=== PATIENT | male | born 1975 | race Caucasian/White ===

== ENCOUNTER 2020-07-16 14:22 | Inpatient (IN) | payer BC, OTHER ==
[~2020-07-16] VITALS: Ht 177.8 cm; Wt 106.6 kg
[2020-07-16 14:28] VITALS: BP 152/88
[2020-07-16 15:15] LABS: ABSOLUTE NEUTROPHILS 9.2 thou/uL (1.4-8.2); BASOPHILS 0.4 % (0.0-2.0); EOSINOPHILS 0.4 % (0.0-3.0); HEMATOCRIT 38.8 % (42.0-52.0); MCH 31.1 pg (26.0-34.0); MCHC 33.6 g/dL (28.0-37.0); MCV 92.5 fL (80.0-100.0); MONOCYTES 5.9 % (1.0-8.0); PLATELET COUNT 307 thou/uL (150-400); POLYS 75.3 % (36.0-66.0); RDW 13.1 % (10.5-14.5); WBC 12.2 thou/uL (4.0-11.0)
[2020-07-16] MEDS ORDERED: BACTRIM DS TAB1 EACH PO (15:17)
[2020-07-16 15:22] LABS: ANION GAP 10 mmol/L (7-16); BUN 12 mg/dL (7-18); CALCIUM 9.1 mg/dL (8.5-10.1); CHLORIDE 99 mmol/L (98-107); CO2 26 mmol/L (21-32); CREATININE 1.1 mg/dL (0.7-1.3); GLUCOSE 163 mg/dL (74-106); POTASSIUM 3.8 mmol/L (3.5-5.1); SODIUM 135 mmol/L (136-145)
[2020-07-16 15:28] LABS: ALBUMIN 3.2 g/dL (3.4-5.0); DIRECT BILIRUBIN < 0.1 mg/dL (<0.1-0.2); LIPASE 81 U/L (73-393); SGOT 18 U/L (15-37); SGPT 40 U/L (30-65); TOTAL BILIRUBIN 0.4 mg/dL (0.2-1.0); TOTAL PROTEIN 8.1 g/dL (6.4-8.2)
[2020-07-16 16:50] VITALS: BP 148/96
--- NOTE | 2020-07-16 17:10 | NUR ---
Pharmacy contacted by medicaid billing clerk. They report they already sent vanco.
[2020-07-16 17:16] VITALS: BP 126/85
--- NOTE | 2020-07-16 17:18 | NUR ---
Pharmacy calls back and report that they will send the vanco shortly.
--- NOTE | 2020-07-16 18:11 | NUR ---
[facility] NURSE CALLED BY THIS RN TO SEE IF VANCO IS THERE. LILY HUTCHINSON REPORTS IT IS NOT. VANCO NOT FOUND IN THE ER AT THIS TIME. EVANGELINA NOTIFIED. WILL CONTACT PHARMACY AGAIN. PT TRANSPORTED TO [facility].
--- NOTE | 2020-07-16 18:23 | NUR ---
Pt taken to [facility]. Elza reprots that she will call [facility] about Za
--- NOTE | 2020-07-16 18:28 | NUR ---
PT ARRIVED ON THE UNIT AT THIS TIME. TRANSFERRED TO THE BED FROM WHEELCHAIR FAIRLY STEADY BUT IS C/O PAIN AT THIS TIME STATING HIS LEG FEELS LIKE IT IS "THROBBING AND GETTING MORE SWOLLEN NOW". ELEVATED RIGHT LEG ON PILLOW TO RELIEVE SOME OF THE PPRESSURE. WILL CALL MD FOR PAIN MEDICATION ORDERS WE HAVE NONE ORDERED THUS FAR. NEEDS TO START VANCOMYCIN ONCE IT ARRIVES FROMPHARMACY AND CALLED DOWN TO PHARMACY TO SEND UP. PT. AOX4, DENIES ANY CP, DENIES AND SOB OR TROUBLE BREATHING. PT REPORTS HE WEAR BOOTS ALL DAY POURING CONCRETE FOR 12-16 HOURS PER DAY AND HIS FEET JUST ALL DAY LONG AND THAT IS HOW HE THINKS THIS ALL STARTED.
[2020-07-16 19:33] VITALS: BP 132/86
--- NOTE | 2020-07-16 21:46 | NUR ---
PT ADMITTED TO THE UNIT AT 1820. ASSUMED CARE OF PT AT APPROXIMATELY 1900. PT IS A/O X4 AND IS UP AD SHARRON. PT DENIES PAIN AT THIS TIME DAY NURSE HAD JUST GIVEN PRN PAIN MEDICATION DIRECTED. NO OTHER C/O AT THIS TIME. ADMISSION DOCUMENTED, AND COMPLETED. CALL LIGHT IS WITHIN REACH. SCHEDULED ANTIBIOTICS HAVE BEEN GIVEN DIRECTED. WILL CONTINUE TO MONITOR.
--- NOTE | 2020-07-17 07:22 | EKG ---
[facility] [place] [address] [place] [address] ELECTROCARDIOGRAM REPORT Name: RULUBA Erickson Room #: 455- ADM IN M.R.#: [id number] Admission: 07/16/20 Attend Phys: Rodger Stewart MD Discharge: Date of : 73 Report #: [id number] THIS REPORT FOR: cc: NAIMA Matt family physician/PCP NAIMA - Vernell family physician/PCP Ivan Taveras MD [facility] ~ THIS REPORT FOR: //name// [facility] ED Test Date: 2020-07-16 Test Time: 17:12:41 Pat Name: LUBA VENCES Department: Room: [facility] Gender: M Event Staff Member: jim : 1975 Requested By: Wilbert Romero Order Number: [id number] MD: Ivan Taveras Measurements Intervals [place] Rate: 103 P: 68 MD: 115 QRS: -29 QRSD: 91 T: 120 QT: 336 QTc: 440 Interpretive Statements Sinus tachycardia Abnormal R-wave progression, early transition LVH with secondary repolarization abnormality Inferior infarct, old Baseline wander in lead(s) V4 No previous ECG available for comparison Electronically Signed On 07-17-2020 7:22:49 CDT by Ivan Taveras [email or web address] <ELECTRONICALLY SIGNED> By: Ivan Taveras MD, FAC 07/17/20 0722 11 11 Ivan Taveras MD, [facility] /EPI
[2020-07-17 07:26] VITALS: BP 129/81
[2020-07-17 12:15] LABS: HEMATOCRIT 40.4 % (42.0-52.0); HEMOGLOBIN 13.2 gm/dL (14.0-18.0); MCH 30.8 pg (26.0-34.0); MCHC 32.8 g/dL (28.0-37.0); MCV 94.1 fL (80.0-100.0); RBC 4.3 mil/uL (4.50-6.00); RDW 13.1 % (10.5-14.5); WBC 7.8 thou/uL (4.0-11.0)
[2020-07-17 12:26] LABS: CALCIUM 9.2 mg/dL (8.5-10.1); CREATININE 0.9 mg/dL (0.7-1.3); POTASSIUM 4.1 mmol/L (3.5-5.1)
--- NOTE | 2020-07-17 13:25 | NUR ---
ASSUMED CARE OF PATIENT AT SHIFT CHANGE. ASSESSMENT CHARTED. MEDS GIVEN PER MAR. VSS. PATIENT IS A&OX4, GETS UP INDEPENDENTLY. MRI CONSENT HAS BEEN SIGNED; PENDING TRANSPORT TO PROCEDURE. THIAMINE AND ABX GIVEN, FLUIDS INFUSING AT 100ML/HE W NO ISSUES. PATIENT C/O PAIN ON L ANKLE; PRN PAIN MEDS ADMINISTERED. APPETITE SUFFICIENT AND TOLERATES WELL. NO N/V/D; MILD DISTRESS AND AGITATION NOTED D/T NICOTINE WITHDRAWAL. PATIENT VOICES HAVING STOPPED DRINKING COLD TURKEY FOR MONTHS W NO ISSUES BUT PATIENT IS STILL BEING MONIOTRED FOR ALCOHOL WITHDRAWAL SYMPTOMS. AWAITING CULTURES AND WOUND CARE ORDERS FOR FUTHER CARE. WILL CONTINUE TO MONITOR.
--- NOTE | 2020-07-17 14:05 | NUR ---
PT ADMITTED RELATED TO CELLULITIS RIGHT ANKLE. CM REVIEWED CHART AND SPOKE WITH CARE TEAM. CM CALLED AND SPOKE WITH PT AT BEDSIDE THIS DAY. PT APPERARED TO BE A&O X4. CM ROLE INTRODUCED. PT INDICATED HE LIVES IN A HOUSE WITH HIS AND DTR. PT INDICATED 2 STEPS TO ENTER AND A FULL FLIGHT INSIDE. 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 PT INDICATED HE HAS CRUTCH IF HE NEEDS IT AT HOME. HE INDICATED NO HH OR SKILLED HX. PT INDICATED HE PLANS TO RETURN HOME ONCE MEDICALLY STABLE. PT HAD MRI THIS DAY AND IS ON IV VANC. CM TO FOLLOW INDICATED WITH DC PLANNING.
--- NOTE | 2020-07-18 03:11 | NUR ---
PATIENT ALERT AND ORIENTED X4. COOPERATIVE WITH CARE. AT BEDSIDE IN EARLY EVENING. IVF INFUSING W/O COMPLICATION. DENIES PAIN. SO FAR IN SHIFT PATIENT IS NOT ANXIOUS. WILL MONITOR.
[2020-07-18 07:50] VITALS: BP 134/88
--- NOTE | 2020-07-18 14:53 | NUR ---
PT IS A&OX4, VSS, AND AMBULATES UP AND AD SHARRON. PT IS ON A REGULAR DIET, CONTINENT TO BOWEL AND BLADDER. PT RIGHT FOOT WAS REDRESSED AND COVER FOR SHOWERED. PT WILL HAVE AND IND TOMORROW AND WILL BE NPO AT MID NIGHT. WILL CONTINUE TO MONITOR.
[2020-07-18 15:46] VITALS: BP 136/94
[2020-07-18 20:35] VITALS: BP 125/87
[2020-07-19] VITALS (8 sets, daily range): BP systolic 123–147; BP diastolic 80–99
--- NOTE | 2020-07-19 08:34 | NUR ---
Assumed pt care at 7am.Pt in bed resting and waiting to be picker feeder for surgery.Pt left per bed at 0800 for surgery in stable condition.
--- NOTE | 2020-07-19 18:42 | O ---
[address] [address] OPERATIVE REPORT Name: TODD VENCES Room #: 455-P ADM IN M.R.#: [id number] Admission: 07/16/20 Attend Phys: Rodger Stewart MD Discharge: Date of : 73 Report #: [id number] THIS REPORT FOR: cc: FAM - No family physician/PCP FAM - No family physician/PCP Todd Olmos MD ~ CC: [facility] physician/PCP Finn Stewart DATE OF SERVICE: 07/19/2020 SERVICE: Orthopedics. FACILITY: [facility]. SURGEON: Todd Olmos MD. CLIENT SUPPORT REPRESENTATIVE: Rosemary Faulkner. PREOPERATIVE DIAGNOSIS: Abscess, right ankle. POSTOPERATIVE DIAGNOSIS: Abscess, right ankle. PROCEDURE: Incision and drainage down to muscle layer, right ankle. COMPLICATIONS: None. DRAINS: None. SPECIMENS: Cultures taken. FINDINGS: 1. Limited purulence. 2. No bony involvement or Achilles tendon involvement. HISTORY: The patient is a 45-year-old male with a developing abscess on his right ankle that was indicated for surgical treatment after it failed nonsurgical measures. PROCEDURE IN DETAIL: After right lower extremity was correctly identified in the preoperative holding area as the operative extremity, the patient was taken to the operating room where general anesthesia was induced without complications. He was padded appropriately. He is on an antibiotic regimen. Right leg was prepped and draped in standard sterile fashion. Time-out procedure was performed. [address] [address] OPERATIVE REPORT Name: RU,TODD Erickson Room #: 455-P [facility] IN ..#: [id number] Admission: 07/16/20 Attend Phys: Rodger Stewart MD Discharge: Date of : 73 Report #: [id number] The wound was incised, working proximally and distally from the central portion of it. There was some necrotic tissue within the core of the wound, which was excised sharply down to the fascial layer. On the more posterior side of the wound, there was some early granulation tissue present and that the wound probed more anteriorly towards the lateral malleolus and to the peroneal muscles and tendons. There was some purulent fluid, which was relatively small in total volume, which was cultured and then we irrigated approximately 2 liters of fluid through the wound. After excising all necrotic tissue, a 4 x 4 was then opened fully and then packed into the wound and then a sterile well-padded dressing was applied to the right leg as well. He will proceed with wound care starting postoperative day 1. We had no plans for repeat I and D, based on the appearance of the wound here today. There were no complications. All counts were correct. <ELECTRONICALLY SIGNED> By: Todd Olmos MD 07/19/20 1842 1041 1050 Todd Olmos MD /nt
--- NOTE | 2020-07-20 08:36 | NUR ---
pt a/o x4 up ad sheila voiding qs ivf's and antibiotics as ordered taking 4 mg morphine for pain prn. with effect
--- NOTE | 2020-07-20 10:40 | HC ---
[facility] [place] [address] [place] [address] CONSULTATION Name: RULUBA Room #: 455-P ADM IN M.R.#: [id number] Admission: 07/16/20 Attend Phys: Rodger Stewart MD Discharge: Date of : 73 Report #: [id number] THIS REPORT FOR: cc: NAIMA - No family physician/PCP NAIMA - No family physician/PCP Israel Owens MD ~ CC: [facility] physician/PCP Finn Stewart DATE OF SERVICE: 07/17/2020 WOUND CARE CONSULTATION PERSONAL PHYSICIAN: None. CHIEF COMPLAINT: Right ankle cellulitis and bilateral foot wounds. HISTORY OF PRESENT ILLNESS: This is a 45-year-old white male who presented to the Emergency Department last night for increased swelling and pain and redness to his right ankle and Achilles region. The patient had been seen earlier in the week and was diagnosed as having possibly gout and was given prescription for something for pain; however, it got worse. He went back to an urgent care and they started him on Bactrim as well as permethrin cream because they felt that he had oak mites and needed to be treated with this. The patient states he used the cream as instructed. The patient states he does still have some itching to these sites. The patient states, however the area around his right ankle, which also had the bites associated with them, started to get more irritated by his work boots and they became more swollen and very excoriated. The patient also noticed he has one on his left heel, but not nearly to the extent of the one that is on his right heel. Once again because of the pain and swelling and irritation, he came to the Emergency Department and was diagnosed with cellulitis and was admitted to the hospital. We have been asked to follow him for these wounds. PAST MEDICAL HISTORY: Has a history of only of Mijxh-Ainviqpmd-Fdatz syndrome. CURRENT MEDICATIONS: At this time are only the Bactrim. DRUG ALLERGIES: None. SOCIAL HISTORY: The patient smokes 1 pack of cigarettes daily, drinks alcohol socially. FAMILY HISTORY: Not pertinent to current medical condition. [facility] [address] [address] CONSULTATION Name: LUBA VENCES Georgina Room #: 455-P [facility] IN M.R.#: [id number] Admission: 07/16/20 Attend Phys: Rodger Stewart MD Discharge: Date of : 73 Report #: [id number] REVIEW OF SYSTEMS: CONSTITUTIONAL: The patient denies fevers or chills. NEUROLOGIC: The patient denies numbness, tingling or weakness in arms or legs. EYES: No complaints. ENT: No complaints. CARDIAC: The patient does complain of slight swelling in his lower extremities, but no chest pain or palpitations. RESPIRATORY: The patient denies shortness of breath, cough or wheezes. GASTROINTESTINAL: The patient denies nausea, vomiting or abdominal pain. GENITOURINARY: The patient denies urgency or frequency. MUSCULOSKELETAL: No complaints. SKIN: The patient has several insect bites throughout his body as well as 2 open wounds on the right posterior heel and the single wound on the left posterior heel. PHYSICAL EXAMINATION: VITAL SIGNS: Stable. The patient is afebrile. GENERAL: This is an alert and oriented x 3, pleasant white male who is in no obvious distress. HEENT: Normocephalic, atraumatic. Mucous membranes are somewhat dry. Pupils are round. Sclerae are white. NECK: Supple, nontender. LUNGS: Clear. HEART: Regular. ABDOMEN: Soft, nontender. EXTREMITIES: The patient has trace to 1+ edema bilateral lower extremities with multiple insect bites, which have occasional some pustular sites as well, most of them have dried up. On the right posterior heel, there is an insect bite, which is infected with increased erythema, warmth and 100% slough in the wound. The wound has moderate amount of serosanguineous drainage noted. There is no significant odor. Distal pulses are otherwise intact. In the left heel, there is a single insect bite, which is 100% slough with mild erythema, but minimal to no tenderness. No other associated wounds are noted on the left foot. NEUROLOGIC: Cranial nerves 2-12 grossly intact. Motor and sensory grossly intact. LABORATORY DATA: White count 12.2, hemoglobin 13.0. Sed rate 58. Albumin is 3.2. IMPRESSION: 1. Right ankle cellulitis secondary to infected insect bite. 2. Chronic ulcer, infected left heel insect bite. 3. History of Qjgwa-Pvtjxpgjm-Wdpol. 4. Chronic tobacco abuse. 5. Moderate protein-calorie malnutrition with albumin [place] 3.1. [place] [address] CONSULTATION Name: LUBA VENCES Room #: 455-P [facility] IN ..#: [id number] Admission: 07/16/20 Attend Phys: Rodger Stewart MD Discharge: Date of : 73 Report #: [id number] PLAN: The patient is already started on IV antibiotics and an MRI has been ordered to evaluate for deeper infection. At this time, we will start the patient on silver alginate to the wounds covered with Bordered Foam, change on Monday, Monday and Monday. We will maximize patient's oral protein supplementation for healing. We will follow up on the MRI. We will counselor nurses' association the patient on tobacco abuse. Continue all other current medications. We will continue to follow the patient. <ELECTRONICALLY SIGNED> By: Israel Owens MD 07/20/20 1040 1340 2236 Israel Owens MD /nt
[2020-07-20 15:04] VITALS: BP 130/86
--- NOTE | 2020-07-20 15:42 | NUR ---
CARE TEAM INDICATED THAT PT MAY BE MEDICALLY STABLE TO DISCHARGE HOME IN THE VERY NEAR FUTURE. PT WAS ISSUED CRUTCHES BY PROVIDER PLUS. AWAITING FINAL ID RECS. CM TO FOLLOW INDICATED WITH DC PLANNING.
[2020-07-20 19:55] VITALS: BP 146/93
--- NOTE | 2020-07-20 20:29 | NUR ---
Assumed patient care at 0715. Patient continues on IV ABT Therapy for Right foot/ankle wound. Dr Cruz here this am to assess wound and to do wound care. Patient required Morphine IV Push prior to this for "level ten" pain. Medication was helpful. No adverse reactions to IV ABT therapy, Vital signs stable, LSCTA; he is up ad sheila. No new medical concerns.
--- NOTE | 2020-07-21 07:10 | NUR ---
ASSUMED PT CARE AROUND 1930. AXOX4. BLE DRESSING CDI. VSS. NO S/S ACUTE DISTRESS NOTED OR REPORTED AT THIS TIME. CARE TRASFERRED TO AM RN AT THIS TIME.
[2020-07-21 07:33] VITALS: BP 130/82
--- NOTE | 2020-07-21 11:39 | NUR ---
Assumed pt care at 7am.Assessment completed.Vss.Pt tolerated breakfast and meds.Po pain med given prior to therapy.Pt now safe to use crutches in the room and hallways per therapist report.Piv was leaking early this shift.Rn attempted x1 but no luck.Iv team paged but was told it's going to be awhile before seeing pt today.Pt notified.No verbal c/o at present.Pt in chair resting.Will continue to monitor.
--- NOTE | 2020-07-21 15:58 | NUR ---
CM SPOKE WITH AN INDIVIDUAL WITH PT'S INSURANCE THIS AFTERNOON WHO HAD QUESTIONED IF PT WOULD BE DISCHARGING HOME ON IV ABX WITH HH SERVICES. CM INDICATED THAT WE WERE STILL AWAITING ID RECS. CM SPOKE WITH PT AND HE INDICATED THAT HE DIDN'T HAVE A PCP HE WAS AGREEABLE WITH CM SETTING HIM UP WITH FOLLOW UP CARES WITH PCP HERE. DR. SREE CALLAWAY TO ACCPET PT HAS APPOINTMENT AT 10:45 07/29/20. SAMMY SPOKE WITH PT ABOUT POSSIBLE NEED FOR HOME INFUSION HE WAS AGREEABLE WITH REFERRAL BEING SENT TO [facility] FOR THEM TO REVIEW BENEFIT COVERAGE. CM TO FOLLOW INDICATED WITH DC PLANNING.
--- NOTE | 2020-07-22 06:55 | NUR ---
PROGRESS PT A/O X4 UP AD SHARRON, DRESSING TO RIGHT FOOT C/D/I PEDAL PULSES POSITIVE, PT DENIES PAIN. PULLED IV OUT IN HIS SLEEP REPLACED IN MT. INTERMITTENT ANTIBIOTICS GIVEN IV PER ORDER. VOIDING QS AND HAD A BM EARLIER THIS EVENING. CONTINUE POC.
[2020-07-22 09:35] VITALS: BP 121/72
--- NOTE | 2020-07-22 11:19 | NUR ---
FAXED REFERRAL TO [facility] SPOKE WITH INTAKE THEY RECEIVED REFERRAL AND CAN ACCEPT AT DC.
[2020-07-22 11:20] VITALS: BP 121/72
[2020-07-22 13:37] VITALS: BP 121/72
[2020-07-22 13:44] VITALS: BP 121/72
[2020-07-22] MEDS ORDERED: HYDROCODON-ACE1 EAC7 PO (14:03)
[2020-07-22] MEDS ORDERED: LINEZOLID600 MG PO (14:03)
--- NOTE | 2020-07-22 15:22 | NUR ---
CARET AM INDICATED THAT PT IS MEDICALLY STABLE TO DC HOME THIS DAY. PT WAS SWITCHED TO ORAL ABX. PT HAS BEEN ACCEPTED FOR HH PT, OT, AND NURSING HH SERVICES WITH [facility]. CM SET PT UP WITH APPOINTMENT WITH DR. SREE CALLAWAY FOR Monday07/29/20 AT 10:45. PT IS AWARE AND AGREEABLE. PT TO DRIVE HIMSELF HOME. NO OTHER CM INTERVENTION INDICATED. CASE CLOSED.
--- NOTE | 2020-07-22 19:24 | NUR ---
ASSUMED CARE OF PATIENT AT SHIFT CHANGE. ASSESSMENT CHARTED. MEDS GIVEN PER MAR. VSS. PATIENT IS A&OX4 C/O PAIN ONLY WHEN R ANKLE DRESSING IS CHNAGED. PRN PAIN MEDS GIVEN UPON WOUND REDRESSING. IV ABX THX GIVEN X1 AND NEW ORDER FOR ORAL ABX ADMINISTERED. PATIENT WAS CLEARED TO DISCHARGE BACK HOME W [facility]. INSTRUCTIONS WERE GIVEN AND UNDERSTANDING WAS COMMUNICATED. PATIENT HAD SHOWERE TODAY W NO ASSIST. UP INDEPENDENTLY. CALLS OUT APPROPRIATELY. VOICES NO OTHER NEEDS. LEFT UNIT AT [address], NO FURTHER CONCERNS
--- NOTE | 2020-07-23 17:17 | NUR ---
WAS NOTIFIED BY INTAKE AT [facility] THEY DID NOT RECEIVED DC ORDERS. FAXED DC ORDERS/SUMMARY SPOKE WITH INTAKE AND THEY WILL NOTIFY PT TIME OF VISITS.
== END 2020-07-22 18:03 | disposition home health service (06) | DRG 580 ==
LOC: ER 14:22 → EROBS 16:42 → 4W 16:42
PROVIDERS: Nurse Practitioner; ADMIT Internal Medicine; ATTEND Internal Medicine
PROC: 0KBV0ZZ Excision of Right Foot Muscle, Open Approach (ICD-10-PCS; principal; 2020-07-19)
DX: L03.115 Cellulitis of right lower limb (principal); L97.319 Non-pressure chronic ulcer of right ankle with unspecified severity; E44.0 Moderate protein-calorie malnutrition; L02.611 Cutaneous abscess of right foot; F10.10 Alcohol abuse, uncomplicated; L02.415 Cutaneous abscess of right lower limb; F17.220 Nicotine dependence, chewing tobacco, uncomplicated; B95.62 Methicillin resistant Staphylococcus aureus infection as the cause of diseases classified elsewhere; Z20.828 Contact with and (suspected) exposure to other viral communicable diseases; W57.XXXA Bitten or stung by nonvenomous insect and other nonvenomous arthropods, initial encounter; Y93.89 Activity, other specified; Y92.89 Other specified places as the place of occurrence of the external cause; Y99.8 Other external cause status; Z68.33 Body mass index [BMI] 33.0-33.9, adult; Z91.19 Patient's noncompliance with other medical treatment and regimen; Z71.6 Tobacco abuse counseling; Z71.41 Alcohol abuse counseling and surveillance of alcoholic
CPT/HCPCS: 10040; 50101; 50386; 57091; 62110; 62900; 70005

== ENCOUNTER → 2020-07-31 | Outpatient (CLI) | payer BC, OTHER ==
[~2020-07-31] MED LIST: BACTRIM DS TAB1 EACH PO; HYDROCODON-ACE1 EAC7 PO; LINEZOLID600 MG PO
== END ==
LOC: HYPER 08:08
PROVIDERS: ATTEND Emergency Medicine Emergency Medical Services
DX: T81.89XA Other complications of procedures, not elsewhere classified, initial encounter (principal); L02.415 Cutaneous abscess of right lower limb; L02.416 Cutaneous abscess of left lower limb; L02.612 Cutaneous abscess of left foot; L03.116 Cellulitis of left lower limb; I10 Essential (primary) hypertension; R54 Age-related physical debility; F10.10 Alcohol abuse, uncomplicated; F17.200 Nicotine dependence, unspecified, uncomplicated; I45.6 Pre-excitation syndrome; Z86.14 Personal history of Methicillin resistant Staphylococcus aureus infection; Y83.8 Other surgical procedures as the cause of abnormal reaction of the patient, or of later complication, without mention of misadventure at the time of the procedure; Y92.238 Other place in hospital as the place of occurrence of the external cause

== ENCOUNTER → 2020-08-14 | Outpatient (CLI) | payer BC, OTHER | LOC: HYPER 08:39 | PROVIDERS: ATTEND Emergency Medicine Emergency Medical Services | DX: T81.89XD Other complications of procedures, not elsewhere classified, subsequent encounter (principal); L02.415 Cutaneous abscess of right lower limb; L02.612 Cutaneous abscess of left foot; L03.116 Cellulitis of left lower limb; I10 Essential (primary) hypertension; R54 Age-related physical debility; I45.6 Pre-excitation syndrome; F10.10 Alcohol abuse, uncomplicated; F17.200 Nicotine dependence, unspecified, uncomplicated; Z86.14 Personal history of Methicillin resistant Staphylococcus aureus infection; Y83.8 Other surgical procedures as the cause of abnormal reaction of the patient, or of later complication, without mention of misadventure at the time of the procedure ==